=== PATIENT | female | born 1970 | race Caucasian/White ===

== ENCOUNTER → 2020-11-09 | Outpatient (CLI) | payer BC ==
--- NOTE | 2020-11-09 20:37 | US ---
EXAMINATION TYPE: US thyroid st tissue head/neck DATE OF EXAM: 11/09/2020 COMPARISON: NONE CLINICAL HISTORY: R22.0 Swelling. GLAND SIZE: Right Lobe: 4.7 x 1.4 x 1.6 cm Overall Parenchyma: homogenous Left Lobe: 4.6 x 1.4 x 1.4 cm Overall Parenchyma: homogeneous Isthmus Thickness: 0.4 cm NODULES RIGHT: # of nodules measured on right: 2 1. 0.7 X 0.5 x 0.7 cm, mid mid, solid or almost completely solid, hypoechoic nodule, which is wider than tall, with smooth margins, with echogenic foci. Prior size: no prior 2. 1.0 X 0.6 x 0.9 cm, lower mid, solid or almost completely solid, hypoechoic nodule, which is wid er than tall, with smooth margins, with echogenic foci. Prior size: no prior LEFT: # of nodules measured on left: 1 1. 0.5 X 0.4 x 0.4 cm, mid lateral, solid or almost completely solid, hypoechoic nodule, which is w ider than tall, with smooth margins, with echogenic foci. Prior size: no prior ISTHMUS: # of nodules measured in the isthmus: 0 Bilateral neck scanned, no evidence of lymphadenopathy. Nodules as described. IMPRESSION: 1. Multinodular thyroid largest measuring 1 cm in the right lobe. 2017 ACR TI-RADS LEVEL: TI-RADS 5 - Highly Suspicious: Follow if > 0.5 cm, FNA if > 1.0 cm *Highest TI-RADS level nodule reported
--- NOTE | 2020-11-09 20:40 | XR ---
EXAMINATION TYPE: XR chest 2V DATE OF EXAM: 11/09/2020 COMPARISON: NONE TECHNIQUE: PA and lateral views submitted. HISTORY: Pain, numbness FINDINGS: The lungs are clear and there is no pneumothorax, pleural effusion, or focal pneumonia. Hypertrophi c and degenerative changes spine. Heart size mildly prominent. Coarsened interstitium. IMPRESSION: 1. Correlate for mild cardiomegaly. Mild chronic central interstitial congestion or bronchitis or int erstitial pneumonitis in the differential diagnosis..
== END | disposition home or self-care (01) ==
LOC: RADUSWWP 16:45
PROVIDERS: ATTEND Family Medicine
DX: E04.2 Nontoxic multinodular goiter (principal); R07.9 Chest pain, unspecified
CPT/HCPCS: 71046; 76536

== ENCOUNTER → 2020-12-11 | Outpatient (CLI) | payer BC | END | disposition home or self-care (01) | DX: R53.83 Other fatigue (principal) | CPT/HCPCS: 36415; 82024; 82533; 82607; 84146; 84439; 84443; 84481; 86376 ==

== ENCOUNTER → 2021-02-04 | Outpatient (CLI) | payer BC ==
--- NOTE | 2021-02-04 09:40 | US ---
EXAMINATION TYPE: US abdomen complete DATE OF EXAM: 02/04/2021 COMPARISON: US 06/13/14 CLINICAL HISTORY: R11.0 Nausea. EXAM MEASUREMENTS: Liver Length: 17.5 cm Gallbladder Wall: 0.2 cm CBD: 0.3 cm Spleen: 7.4 cm Right Kidney: 10.7 x 4.9 x 4.6 cm Left Kidney: 10.3 x 5.4 x 5.3 cm Pancreas: Partially Obscured by bowel gas Liver: Increased attenuation Gallbladder: No stones seen. GB with fold at fundus Evidence for sonographic Lopez's sign: No CBD: wnl Spleen: wnl Right Kidney: No hydronephrosis or masses seen Left Kidney: No hydronephrosis or masses seen Upper IVC: wnl Abd Aorta: wnl The intrahepatic portion of the IVC and proximal abdominal aorta are within normal limits. There is no evidence of cholelithiasis. Common bile duct is unremarkable. The visualized portions of the waddell creas are homogenous. The spleen is unremarkable. Kidneys are symmetric and free of hydronephrosis. No renal lesions are seen. IMPRESSION: Hepatic steatosis
== END | disposition home or self-care (01) ==
LOC: RADUSWWP 07:39
PROVIDERS: ATTEND Family Medicine
DX: K76.0 Fatty (change of) liver, not elsewhere classified (principal)
CPT/HCPCS: 76700

== ENCOUNTER → 2021-03-06 | Outpatient (CLI) | payer BC ==
--- NOTE | 2021-03-06 16:17 | CT ---
EXAMINATION TYPE: CT soft tissue neck w con DATE OF EXAM: 03/06/2021 COMPARISON: None HISTORY: Generalized neck swelling, no palpable lump. CT DLP: 651.2 mGycm CONTRAST: Patient injected with 100 mL of Isovue M300. TECHNIQUE: Axial images at 3 mm thick sections. Reconstructed images in the coronal plane and sagitt al plane are reviewed. FINDINGS: Limited CT sections are obtained the lung apices. The lung apices appear clear. Portion of the thyroid visualized is normal. CT neck: The torus tubarius and fossa of Rosenmuller are normal. Snipper spaces are normal. Para nasal sinuses and mastoid air cells are clear. Parotid glands appear normal and symmetrical. Submandibular glands, are normal. Parapharyngeal spac es are normal. No suspicious adenopathy is evident. The hypopharynx appears within normal limits. Vocal cord level appear symmetrical. Osseous structures are normal. IMPRESSIONS: 1. Normal soft tissue neck. No suspicious abnormality to account for generalized neck swelling.
--- NOTE | 2021-03-07 08:37 | XR ---
EXAMINATION TYPE: XR chest 2V DATE OF EXAM: 03/06/2021 COMPARISON: Chest x-ray 11/09/2020 HISTORY: Shortness of breath TECHNIQUE: Frontal and lateral views of the chest are obtained. FINDINGS: There is no focal air space opacity, pleural effusion, or pneumothorax seen. The cardiac silhouette size is within normal limits. There is eventration of the right hemidiaphragm, interstiti um is stable. The osseous structures are stable. IMPRESSION: No acute cardiopulmonary process.
== END | disposition home or self-care (01) ==
LOC: RADCTMAIN 15:32
PROVIDERS: ATTEND Family Medicine
DX: R22.1 Localized swelling, mass and lump, neck (principal); R06.02 Shortness of breath
CPT/HCPCS: 71046; 70491; Q9967

== ENCOUNTER → 2021-05-13 | Outpatient (CLI) | payer BC ==
[~2021-05-13] MED LIST: SODIUM CHLORIDE 0.9% 50 ML IVPB ONE; SODIUM CHLORIDE 0.9% 500 ML 500 ML in EMPTY BAG 1 BAG IV PRN; SOTROVIMAB (EUA) 500 MG in SODIUM CHLORIDE 0.9% 100 ML IVPB ONE
[2021-05-13 13:35] VITALS: TEMP 96.6
[2021-05-13 14:43] VITALS: BP 98/57; PULSE 73; RESP 18
== END ==
LOC: PROCWHC3 13:10
PROVIDERS: ATTEND Nurse Practitioner Adult Health
DX: U07.1 COVID-19 (principal)
CPT/HCPCS: 96360

== ENCOUNTER → 2021-09-24 | Outpatient (CLI) | payer BC ==
[2021-09-25 00:08] LABS: Thyroid Peroxidase Antibodies <9.0 U/mL (0.0-33.0)
[2021-09-25 00:48] LABS: Prolactin 5.8 ng/mL (2.800-29.200); T4, Free (Free Thyroxine) 1.21 ng/dL (0.800-1.800)
--- NOTE | 2021-09-25 08:17 | US ---
EXAMINATION TYPE: US thyroid st tissue head/neck DATE OF EXAM: 09/24/2021 COMPARISON: US CLINICAL HISTORY: E04.2 NONTOXIC MULTINODULAR GOITER. Goiter. GLAND SIZE: Right Lobe: 4.9 x 1.7 x 1.5 cm Overall Parenchyma: homogenous Left Lobe: 4.7 x 1.7 x 1.1 cm Overall Parenchyma: homogeneous Isthmus Thickness: 0.29 cm NODULES RIGHT: # of nodules measured on right: 2. Additional <5 mm nodule noted superiorly. 1. 0.7 X 0.7 x 0.5 cm, mid mid, solid or almost completely solid, hypoechoic nodule, which is wider than tall, with smooth margins, without echogenic foci. Prior size: 0.7 x 0.5 x 0.7 cm 2. 1.0 X 1.1 x 0.6 cm, lower mid, solid or almost completely solid, hypoechoic nodule, which is wid er than tall, with smooth margins, with echogenic foci. Prior size: 1.0 x 0.6 x 0.9 cm LEFT: # of nodules measured on left: 1 *Additional <5 mm nodule noted medially. 1. 0.7 X 0.5 x 0.4 cm, mid lateral, solid or almost completely solid, hypoechoic nodule, which is w ider than tall, with smooth margins, with echogenic foci. Prior size: 0.5 x 0.4 x 0.4 cm ISTHMUS: # of nodules measured in the isthmus: 0 Bilateral neck scanned, no evidence of lymphadenopathy. IMPRESSION: Stable nonspecific nodularity.
== END | disposition home or self-care (01) ==
LOC: RADUSWWP 15:51
PROVIDERS: ATTEND Internal Medicine Endocrinology, Diabetes & Metabolism
DX: E04.2 Nontoxic multinodular goiter (principal)
CPT/HCPCS: 76536; 82024; 82533; 82607; 84146; 84439; 84443; 84481; 86376

== ENCOUNTER 2021-12-18 08:23 | Day surgery (SDC) | payer BC ==
[2021-12-16 10:04] VITALS: BMI 44.9
--- NOTE | 2021-12-18 07:41 | P.GSHP ---
History of Present Illness H&P Date: 12/18/21 CHIEF COMPLAINT: GERD and colon screen HISTORY OF PRESENT ILLNESS: The patient is a 51-year-old female who presents with gastroesophageal reflux disease and need for colon screen. Upper and lower endoscopy were offered for further evaluation and management. PAST MEDICAL HISTORY: Please see list. PAST SURGICAL HISTORY: Please see list. MEDICATIONS: Please see list. ALLERGIES: Please see list. SOCIAL HISTORY: No illicit drug use FAMILY HISTORY: No reports of Crohn disease or ulcerative colitis. REVIEW OF ORGAN SYSTEMS: CONSTITUTIONAL: No reports of fevers or chills. GI: Denies any blood in stools or constipation. PHYSICAL EXAM: VITAL SIGNS: Stable GENERAL: Well-developed pleasant in no acute distress. HEENT: No scleral icterus. Extraocular movements grossly intact. Moist buccal mucosa. NECK: Supple without lymphadenopathy. CHEST: Unlabored respirations. Equal bilateral excursions. CARDIOVASCULAR: Regular rate and rhythm. Distal 2+ pulses. ABDOMEN: Soft, nondistended. MUSCULOSKELETAL: No clubbing, cyanosis, or edema. ASSESSMENT: 1. Gastroesophageal reflux disease 2. Colon screen. PLAN: 1. Recommend proceeding with an upper and lower endoscopy Past Medical History Past Medical History: No Reported History Additional Past Medical History / Comment(s): Varicose veins. History of Any Multi-Drug Resistant Organisms: None Reported Additional Past Surgical History / Comment(s): D&C. Past Anesthesia/Blood Transfusion Reactions: No Reported Reaction Past Psychological History: No Psychological Hx Reported Smoking Status: Current every day smoker Past Alcohol Use History: Occasional Additional Past Alcohol Use History / Comment(s): Smokes 1/2 ppd for 20+ yrs. Past Drug Use History: None Reported - Past Family History Mother Family Medical History: No Reported History Medications and Allergies Home Medications Medication Instructions Recorded Confirmed Type Fexofenadine/Pseudoephedrine 1 tab PO DAILY 12/16/21 12/16/21 History [Aditi-D 24 Hour Tablet] Ibuprofen [Motrin Ib] 600 mg PO Q8H PRN 12/16/21 12/16/21 History Allergies Allergy/AdvReac Type Severity Reaction Status Date / Time No Known Allergies Allergy Verified 12/16/21 09:47
[~2021-12-18 08:23] MED LIST changes: +LACTATED RINGERS 1,000 ML IV SCH; -SODIUM CHLORIDE 0.9% 50 ML IVPB ONE; -SODIUM CHLORIDE 0.9% 500 ML 500 ML in EMPTY BAG 1 BAG IV PRN; -SOTROVIMAB (EUA) 500 MG in SODIUM CHLORIDE 0.9% 100 ML IVPB ONE
[2021-12-18 09:09] VITALS: RESP 16; TEMP 98
[2021-12-18] MEDS ORDERED: LIDOCAINE 2% INJ 20 MG/ML (2 ML VIAL) ONE (09:25)
[2021-12-18] MEDS ORDERED: PROPOFOL 10 MG/ML 20 ML VIAL IV ONE (09:25)
[2021-12-18] MEDS ORDERED: GLYCOPYRROLATE 0.2 MG/ML 2 ML VIAL ONE (09:25)
--- NOTE | 2021-12-18 09:38 | P.PCN ---
Date of Procedure: 12/18/21 Description of Procedure: PREOPERATIVE DIAGNOSIS: Gastroesophageal reflux disease. Morbid obesity. POSTOPERATIVE DIAGNOSIS: Gastroesophageal reflux disease. Morbid obesity. Duodenitis OPERATION: Esophagogastroduodenoscopy with biopsies along antrum and duodenum SURGEON: Eneida Ulloa MD ANESTHESIA: MAC. INDICATIONS: The patient is a [id number] female who presents with reflux disease. Benefits and risks of the procedure were described. Informed consent was obtained. DESCRIPTION: The patient was brought into the endoscopy suite and laid in the left lateral decubitus position. An Olympus gastroscope was passed along the posterior oropharynx down to the distal esophagus where the squamocolumnar junction was encountered at 36 cm from the incisors. The stomach was entered and no bile reflux was found. Additional findings are listed below. Biopsies with cold forceps were obtained of the antrum. The first through third portion of the duodenum was examined. Retroflexion of the scope confirmed Hill grade 2 lower esophageal valve. The squamocolumnar junction demonstrated LA grade B erosive esophagitis. The stomach was desufflated. The patient tolerated the procedure well. FINDINGS: Squamocolumnar junction 36 cm from the incisors. Diaphragmatic hiatus at 36 cm. Hill grade 2 lower esophageal valve. LA grade B erosive esophagitis. Biopsies obtained of duodenal Chronic gastritis RECOMMENDATIONS: Upper endoscopy as needed.
--- NOTE | 2021-12-18 09:58 | P.PCN ---
Date of Procedure: 12/18/21 Description of Procedure: PREOPERATIVE DIAGNOSIS: Abnormal cologaurd, fecal stool tests POSTOPERATIVE DIAGNOSIS: Tubular adenoma, rectum Tubular adenoma, sigmoid colon OPERATION: Colonoscopy to the ileocecal valve and appendiceal orifice, cecum Colonoscopy with cold forceps biopsy SURGEON: Eneida Ulloa MD. ANESTHESIA: MAC. INDICATIONS: The patient is an 51-year-old female who presents with abnormal stool test, Cologaurd. Benefits and risks were described and informed consent was obtained. DESCRIPTION OF PROCEDURE: The patient had undergone Sutab prep. The patient had been brought into the operating room and laid in the left lateral decubitus position. After adequate intravenous sedation, the rectum was examined with 2% lidocaine jelly. The prostate was unremarkable. No external hemorrhoids were encountered. The rectal tone was within normal limits. No lesions were palpated in the rectal vault. An Olympus colonoscope was advanced until the cecum, ileocecal valve and appendiceal orifice were clearly viewed. The prep was fair. No sigmoid diverticulosis was encountered. Colonic polyps were found and removed. No evidence of focal colitis was found. Retroflexion of the scope demonstrated grade 1 internal hemorrhoids without active bleeding or inflammation. The colon was desufflated. The patient had tolerated the procedure well. Withdrawal time was over 6 minutes. FINDINGS: Aronchick preparation quality scale 3 (1-5) Internal hemorrhoids, grade 1 No external hemorrhoids No arteriovenous malformations. No sigmoid diverticulosis Removal of 2 polyps: - Cold forceps biopsy at 10 cm from the anal verge, 5 mm polyp, rectum - Cold forceps biopsy at 15 cm from the anal verge, 3 mm polyp, sigmoid colon No focal colitis. RECOMMENDATIONS: We be colonoscopy 3 years, 2024 Plan - Discharge Summary Discharge Rx Participant: No New Discharge Prescriptions: New Omeprazole [PriLOSEC] 40 mg PO DAILY #14 cap Continue Ibuprofen [Motrin Ib] 600 mg PO Q8H PRN PRN Reason: Pain Fexofenadine/Pseudoephedrine [Aditi-D 24 Hour Tablet] 1 tab PO DAILY Discharge Medication List Fexofenadine/Pseudoephedrine [Adtii-D 24 Hour Tablet] 1 tab PO DAILY 12/16/21 [History] Ibuprofen [Motrin Ib] 600 mg PO Q8H PRN 12/16/21 [History] Omeprazole [PriLOSEC] 40 mg PO DAILY #14 cap 12/18/21 [Rx] Follow up Appointment(s)/Referral(s): Eneida Ulloa MD [STAFF PHYSICIAN] - 12/31/21 Patient Instructions/Handouts: *Surgery [facility] - (Anesthesia) Endoscopy Discharge Instructions, Duodenitis (DC), Colonoscopy (DC), Upper Endoscopy (DC), Colorectal Polyps (GEN) Activity/Diet/Wound Care/Special Instructions: Repeat colonoscopy in 3 years, 2024 Discharge Disposition: HOME SELF-CARE
[2021-12-18 10:14] VITALS: BP 132/84; PULSE 63
== END 2021-12-18 10:31 | disposition home or self-care (01) ==
LOC: ORWHC2ENDO 08:23
PROVIDERS: ATTEND Surgery Plastic and Reconstructive Surgery
DX: Z12.11 Encounter for screening for malignant neoplasm of colon (principal); K62.1 Rectal polyp; K64.0 First degree hemorrhoids; K29.50 Unspecified chronic gastritis without bleeding; K21.00 Gastro-esophageal reflux disease with esophagitis, without bleeding; K44.9 Diaphragmatic hernia without obstruction or gangrene; E66.01 Morbid (severe) obesity due to excess calories; Z68.41 Body mass index [BMI] 40.0-44.9, adult; F17.200 Nicotine dependence, unspecified, uncomplicated; Z79.899 Other long term (current) drug therapy
CPT/HCPCS: 88305; 45380; 43239; J2704; J2001

== ENCOUNTER → 2022-10-16 | Outpatient (CLI) | payer BC ==
--- NOTE | 2022-10-17 19:52 | MM ---
Reason for Exam: Screening (asymptomatic). Last screening mammogram was performed 12 month(s) ago. Patient History: Menarche at age 12. First Full-Term at age 31. Late child-bearing (after 30). Postmenopausal. Maternal aunt had breast cancer. Maternal aunt had breast cancer. Risk Values: Altagracia 5 year model risk: 1.5%. NCI Lifetime model risk: 11.8%. Prior Study Comparison: 02/02/2019 Screening Mammogram, [facility]. 04/23/2020 Screening Mammogram, [facility]. 10/15/2021 Bilateral Screening Mammogram, [facility]. Tissue Density: There are scattered fibroglandular densities. Findings: Analyzed By CAD. There is no suspicious group of microcalcifications or new suspicious mass in either breast. Overall Assessment: Negative, BI-RAD 1 Management: Screening Mammogram of both breasts in 1 year. . Patient should continue monthly self-breast exams. A clinical breast exam by your physician is recommended on an annual basis. This exam should not preclude additional follow-up of suspicious palpable abnormalities. Note on Altagracia scores and lifetime risk: 1. A Altagracia score greater than 3% is considered moderate risk. If this is the case, consider specialist referral to assess eligibility for a risk reducing agent. 2. If overall lifetime risk for the development of breast cancer is 20% or higher, the patient may qualify for future screening with alternating mammogram and breast MRI. Electronically signed and approved by: Laith Whitman M.D. Radiologist
== END | disposition home or self-care (01) ==
LOC: RADMAMWWP 16:16
PROVIDERS: ATTEND Obstetrics & Gynecology Obstetrics
DX: Z12.31 Encounter for screening mammogram for malignant neoplasm of breast (principal); Z80.3 Family history of malignant neoplasm of breast; Z78.0 Asymptomatic menopausal state
CPT/HCPCS: 77063; 77067

== ENCOUNTER → 2023-09-18 | Outpatient (CLI) | payer BC | END | disposition home or self-care (01) | LOC: LABWHC1 15:50 | PROVIDERS: ATTEND Internal Medicine Endocrinology, Diabetes & Metabolism | DX: Z53.9 Procedure and treatment not carried out, unspecified reason (principal) ==

== ENCOUNTER → 2023-09-18 | Outpatient (CLI) | payer BC ==
--- NOTE | 2023-09-18 16:09 | US ---
EXAMINATION TYPE: US thyroid st tissue head/neck DATE OF EXAM: 09/18/2023 COMPARISON: NONE CLINICAL INDICATION: Female, 53 years old with history of E04.2 NONTOXIC MULTINODULAR GOITER; GLAND SIZE: Right Lobe: 4.6 x 1.6 x 1.4 cm Overall Parenchyma: homogeneous Left Lobe: 4.8 x 1.1 x 1.5 cm Overall Parenchyma: homogeneous Isthmus Thickness: 0.4 cm NODULES RIGHT: # of nodules measured on right: 2 1. 0.7 X 0.6 x 0.6 cm, mid lateral, solid or almost completely solid, hypoechoic nodule, which is C ircular, with smooth margins, with echogenic foci. Prior size: 0.7 x 0.5 x 0.6 cm 2. 0.9 X 0.6 x 0.9 cm, lower mid, solid or almost completely solid, hypoechoic nodule, which is wid er than tall, with smooth margins, without echogenic foci. Prior size: 1.0 x 0.5 x 0.9 cm LEFT: # of nodules measured on left: 2 1. 0.5 X 0.3 x 0.4 cm, mid medial, solid or almost completely solid, hypoechoic nodule, which is wi moses than tall, with smooth margins, with echogenic foci. Prior size: Not seen on prior 2. 0.7 X 0.4 x 0.5 cm, lower lateral, solid or almost completely solid, hypoechoic nodule, which i s wider than tall, with ill-defined margins, with echogenic foci. Prior size: 0.6 x 0.3 x 0.5 cm ISTHMUS: # of nodules measured in the isthmus: 0 Bilateral neck scanned, no evidence of lymphadenopathy. IMPRESSION: Subcentimeter thyroid nodules without significant interval change. 2017 ACR TI-RADS LEVEL: *Highest TI-RADS level nodule reported
== END | disposition home or self-care (01) ==
LOC: RADUSWWP 15:26
PROVIDERS: ATTEND Internal Medicine Endocrinology, Diabetes & Metabolism
DX: E04.2 Nontoxic multinodular goiter (principal)
CPT/HCPCS: 76536

== ENCOUNTER → 2023-09-18 | Outpatient (CLI) | payer BC ==
--- NOTE | 2023-09-18 16:09 | US ---
EXAMINATION TYPE: US abdomen limited DATE OF EXAM: 09/18/2023 COMPARISON: NONE CLINICAL INDICATION: Female, 53 years old with history of R19.09 OTHER INTRA-ABDOMINAL AND PELVIC SWE LLING,; Intermittent lump superior to umbilicus x 1 year TECHNIQUE: FINDINGS: ? Hernia seen at patients AOC = 7.2 x 2.5 x 6.0 cm IMPRESSION: Hernia as noted above.
[2023-09-19 05:15] LABS: T4, Free (Free Thyroxine) 1.16 ng/dL (0.80-1.80)
== END | disposition home or self-care (01) ==
LOC: RADUSWWP 15:28
PROVIDERS: ATTEND Family Medicine
DX: K46.9 Unspecified abdominal hernia without obstruction or gangrene (principal); R19.09 Other intra-abdominal and pelvic swelling, mass and lump
CPT/HCPCS: 76705; 84439; 84443

== ENCOUNTER → 2023-10-19 | Outpatient (CLI) | payer BC ==
--- NOTE | 2023-10-20 20:10 | MM ---
Reason for Exam: Screening (asymptomatic). Last screening mammogram was performed 12 month(s) ago. Patient History: Menarche at age 12. First Full-Term at age 31. Late child-bearing (after 30). Postmenopausal. Maternal aunt had breast cancer. Maternal aunt had breast cancer. Risk Values: Altagracia 5 year model risk: 1.5%. NCI Lifetime model risk: 11.6%. Prior Study Comparison: 04/23/2020 Screening Mammogram, [facility]. 10/15/2021 Bilateral Screening Mammogram, [facility]. 10/16/2022 Bilateral MG 3D screening mammo w/cad, [facility]. Tissue Density: There are scattered areas of fibroglandular density. Findings: Analyzed By CAD. Increasing nodular asymmetric density superior central aspect of the right breast on the MLO view anterior to middle depth. This may represent superimposition shadow but further evaluation is recommended. Otherwise, no significant change. Overall Assessment: Incomplete: need additional imaging evaluation, BI-RAD 0 Management: Special View Mammogram of the right breast. . [facility] will attempt to contact patient to return for supplemental views and ultrasound if indicated. Electronically signed and approved by: Laith Whitman M.D. Radiologist
== END | disposition home or self-care (01) ==
LOC: RADMAMWWP 15:13
PROVIDERS: ATTEND Obstetrics & Gynecology Obstetrics
DX: Z12.31 Encounter for screening mammogram for malignant neoplasm of breast (principal); Z78.0 Asymptomatic menopausal state; Z80.3 Family history of malignant neoplasm of breast
CPT/HCPCS: 77063; 77067

== ENCOUNTER → 2023-10-23 | Outpatient (CLI) | payer BC ==
--- NOTE | 2023-10-23 20:37 | MM ---
Reason for Exam: Additional evaluation requested from abnormal screening. Last screening mammogram was performed less than 1 month ago. Patient History: Menarche at age 12. First Full-Term at age 31. Late child-bearing (after 30). Postmenopausal. Maternal aunt had breast cancer. Maternal aunt had breast cancer. Risk Values: Altagracia 5 year model risk: 1.5%. NCI Lifetime model risk: 11.6%. Tissue Density: Right: There are scattered areas of fibroglandular density. Findings: Analyzed By CAD. The questioned asymmetric density anterior to middle depth centrally in the breast does not persist on additional views. The appearance becomes similar to prior exams. Findings compatible with benign superposition shadow. Overall Assessment: Benign, BI-RAD 2 Management: Screening Mammogram of both breasts in 1 year. . Results were given to the patient verbally at the time of exam. Patient should continue monthly self-breast exams. A clinical breast exam by your physician is recommended on an annual basis. This exam should not preclude additional follow-up of suspicious palpable abnormalities. Note on Altagracia scores and lifetime risk: 1. A Altagracia score greater than 3% is considered moderate risk. If this is the case, consider specialist referral to assess eligibility for a risk reducing agent. 2. If overall lifetime risk for the development of breast cancer is 20% or higher, the patient may qualify for future screening with alternating mammogram and breast MRI. Electronically signed and approved by: Laith Whitman M.D. Radiologist
== END | disposition home or self-care (01) ==
LOC: RADMAMWWP 14:08
PROVIDERS: ATTEND Obstetrics & Gynecology Obstetrics
DX: R92.8 Other abnormal and inconclusive findings on diagnostic imaging of breast (principal); R92.321 Mammographic fibroglandular density, right breast; Z78.0 Asymptomatic menopausal state; Z80.3 Family history of malignant neoplasm of breast
CPT/HCPCS: 77061; 77065

== ENCOUNTER → 2024-01-07 | Outpatient (CLI) | payer BC ==
--- NOTE | 2024-01-09 10:55 | CT ---
EXAMINATION TYPE: CT abdomen pelvis w con CT DLP: 1827.3 mGycm, Automated exposure control for dose reduction was used. DATE OF EXAM: 01/07/2024 5:57 PM COMPARISON: CT abdomen pelvis most recent from CLINICAL INDICATION:Female, 53 years old with history of K56.609 INTESTINAL OBSTRUCTION, UNSPECIFIED TO PARTIAL VERSUS C; ABD PAIN AND SWELLING TECHNIQUE: Axial CT abdomen pelvis w con;Sagittal and coronal reformats were created on a separate w orkstation. Contrast used:100 mL of Isovue 300 with IV Contrast, (none if empty) Oral contrast used: with Oral Contrast (none if empty) FINDINGS: LOWER CHEST: Unremarkable ABDOMEN LIVER: Unremarkable GALLBLADDER AND BILE DUCTS: Unremarkable. PANCREAS: Unremarkable. SPLEEN: Unremarkable. ADRENAL GLANDS: Unremarkable. KIDNEYS AND URETERS: No evidence of hydronephrosis or renal calculus. The ureters are unremarkable. PELVIS BLADDER: Unremarkable REPRODUCTIVE: Unremarkable. ABDOMEN & PELVIS STOMACH AND BOWEL: Oral contrast is seen throughout the small bowel and throughout the ascending colo n and partially through the transverse colon. No evidence of bowel obstruction. PERITONEUM/RETROPERITONEUM: No evidence of pneumoperitoneum or free fluid. VASCULATURE: No evidence of aortic aneurysm. MUSCULOSKELETAL: No acute osseous abnormalities LYMPH NODES: No gross evidence for lymphadenopathy. SOFT TISSUE/ABDOMINAL WALL: . Mid abdomen, fat-containing, ventral hernia has a 4 cm neck. IMPRESSION: Transit of oral contrast is seen through the transverse colon. No evidence of bowel obstruction. No acute process detected.. Mid abdomen, fat-containing, ventral hernia has a 4 cm neck. This is essentially midline and and 3 c m above the umbilicus.
== END | disposition home or self-care (01) ==
LOC: RADCTMAIN 15:59
PROVIDERS: ATTEND Surgery Plastic and Reconstructive Surgery
DX: K56.609 Unspecified intestinal obstruction, unspecified as to partial versus complete obstruction (principal); K43.9 Ventral hernia without obstruction or gangrene
CPT/HCPCS: 74177; Q9967

== ENCOUNTER → 2024-05-30 | Outpatient (CLI) | payer BC ==
[2024-05-30 11:02] LABS: HCT 41.9 % (37.2-46.3); HGB 13.6 g/dL (12.0-15.0); MCH 29.6 pg (27.0-32.0); MCHC 32.5 g/dL (32.0-37.0); MCV 91.1 FL (80.0-97.0); Mean Platelet Volume 10.2 FL (9.5-12.2); NRBC Per 100 WBC 0 X 10*3/uL (0.00-0.01); Platelet Count 290 X 10*3/uL (140-440); RDW 12.6 % (11.5-14.5); WBC 5.94 X 10*3/uL (4.50-10.00)
[2024-05-30 13:04] LABS: Chol/HDL Ratio 3.91 Ratio; LDL Cholesterol,Calculated 146.9 mg/dL (0.0-131.0); VLDL Calculation 18.98 mg/dL (5.00-40.00)
[2024-05-30 13:05] LABS: ALT 28 U/L (8-44); AST 21 U/L (13-35); Albumin 3.8 g/dL (3.8-4.9); Albumin/Globulin Ratio 1.27 Ratio (1.60-3.17); Alkaline Phosphatase 106 U/L (41-126); BUN/Creat Ratio 27.29 Ratio (12.00-20.00); Blood Urea Nitrogen 19.1 mg/dL (9.0-27.0); Calcium 9.3 mg/dL (8.7-10.3); Carbon Dioxide 25.1 mmol/L (21.6-31.8); Chloride 107 mmol/L (96-109); Glucose 95 mg/dL (70-110); Potassium 4.3 mmol/L (3.5-5.5); Sodium 143 mmol/L (135-145); Total Bilirubin 0.3 mg/dL (0.3-1.2); Total Protein 6.8 g/dL (6.2-8.2)
[2024-05-30 13:49] LABS: NT-Pro-B-Type Natriuretic Pept 104 pg/mL (0-125)
== END ==
LOC: LABWHC1 07:49
PROVIDERS: ATTEND Student in an Organized Health Care Education/Training Program
DX: Z13.6 Encounter for screening for cardiovascular disorders (principal); D72.9 Disorder of white blood cells, unspecified; R79.89 Other specified abnormal findings of blood chemistry; E11.9 Type 2 diabetes mellitus without complications; I50.9 Heart failure, unspecified; E78.5 Hyperlipidemia, unspecified; E03.9 Hypothyroidism, unspecified
CPT/HCPCS: 36415; 80053; 80061; 83036; 83880; 84443; 85027

== ENCOUNTER → 2024-11-16 | Outpatient (CLI) | payer BC ==
--- NOTE | 2024-11-17 07:57 | MM ---
Reason for Exam: Screening (asymptomatic). Last mammogram was performed 1 year(s) and 1 month(s) ago. Patient History: Menarche at age 12. First Full-Term at age 31. Late child-bearing (after 30). Postmenopausal. Maternal aunt had breast cancer. Maternal aunt had breast cancer. Risk Values: Altagracia 5 year model risk: 1.6%. NCI Lifetime model risk: 11.4%. Prior Study Comparison: 10/16/2022 Bilateral MG 3D screening mammo w/cad, [facility]. 10/19/2023 Bilateral MG 3D screening mammo w/cad, [facility]. 10/23/2023 Right MG 3D work up w/cad RT, [facility]. Tissue Density: There are scattered areas of fibroglandular density. Findings: Analyzed By CAD. There is no suspicious group of microcalcifications or new suspicious mass in either breast. Stable chronic nodularity left breast. Overall Assessment: Benign, BI-RAD 2 Management: Screening Mammogram of both breasts in 1 year. . Patient should continue monthly self-breast exams. A clinical breast exam by your physician is recommended on an annual basis. This exam should not preclude additional follow-up of suspicious palpable abnormalities. Note on Altagracia scores and lifetime risk: 1. A Altagracia score greater than 3% is considered moderate risk. If this is the case, consider specialist referral to assess eligibility for a risk reducing agent. 2. If overall lifetime risk for the development of breast cancer is 20% or higher, the patient may qualify for future screening with alternating mammogram and breast MRI. [facility], , 11/17/2024 7:54 AM. Electronically signed and approved by: Heber Mccoy M.D. Radiologis
== END | disposition home or self-care (01) ==
LOC: RADMAMWWP 16:13
PROVIDERS: ATTEND Obstetrics & Gynecology Obstetrics
DX: Z12.31 Encounter for screening mammogram for malignant neoplasm of breast (principal); R92.323 Mammographic fibroglandular density, bilateral breasts; Z78.0 Asymptomatic menopausal state; Z80.3 Family history of malignant neoplasm of breast
CPT/HCPCS: 77063; 77067

== ENCOUNTER 2024-12-14 07:59 | Day surgery (SDC) | payer BC ==
[2024-12-14] MEDS: IV FLUID CONTINUATION 1,000 ML IV ONE (08:41)
[2024-12-14 08:44] VITALS: TEMP 97
[2024-12-14] MEDS: LACTATED RINGERS 1,000 ML IV SCH (08:58)
--- NOTE | 2024-12-14 09:01 | P.GSHP ---
History of Present Illness H&P Date: 12/14/24 CHIEF COMPLAINT: Dysphagia and colon screen HISTORY OF PRESENT ILLNESS: The patient is a 54-year-old female who presents with dysphagia, gastroesophageal reflux disease and need for colon screen. Upper and lower endoscopy were offered for further evaluation and management. PAST MEDICAL HISTORY: Please see list. PAST SURGICAL HISTORY: Please see list. MEDICATIONS: Please see list. ALLERGIES: Please see list. SOCIAL HISTORY: No illicit drug use FAMILY HISTORY: No reports of Crohn disease or ulcerative colitis. REVIEW OF ORGAN SYSTEMS: CONSTITUTIONAL: No reports of fevers or chills. GI: Denies any blood in stools or constipation. PHYSICAL EXAM: VITAL SIGNS: Stable GENERAL: Well-developed pleasant in no acute distress. HEENT: No scleral icterus. Extraocular movements grossly intact. Moist buccal mucosa. NECK: Supple without lymphadenopathy. CHEST: Unlabored respirations. Equal bilateral excursions. CARDIOVASCULAR: Regular rate and rhythm. Distal 2+ pulses. ABDOMEN: Soft, nondistended. MUSCULOSKELETAL: No clubbing, cyanosis, or edema. ASSESSMENT: 1. Dysphagia and gastroesophageal reflux disease 2. Colon screen. PLAN: 1. Recommend proceeding with an upper and lower endoscopy Past Medical History Past Medical History: No Reported History Additional Past Medical History / Comment(s): Varicose veins. History of Any Multi-Drug Resistant Organisms: None Reported Past Surgical History: Tonsillectomy Additional Past Surgical History / Comment(s): D&C. colonoscopy Past Anesthesia/Blood Transfusion Reactions: No Reported Reaction Smoking Status: Current every day smoker - Past Family History Mother Family Medical History: No Reported History Medications and Allergies Home Medications Medication Instructions Recorded Confirmed Type Fexofenadine/Pseudoephedrine 1 tab PO DAILY 12/16/21 12/12/24 History [Aditi-D 24 Hour Tablet] Ibuprofen [Motrin Ib] 600 mg PO Q8H PRN 12/16/21 12/12/24 History B12 Complex 1 tab PO DAILY 12/12/24 12/12/24 History Contrave (Unk) 1 tab PO DAILY 12/12/24 12/12/24 History Multivitamins, Thera [Multivitamin 1 tab PO DAILY 12/12/24 12/12/24 History (formulary)] Mv-Min/Vit C/Glut/Lysine/Hb124 1 tablet PO DAILY 12/12/24 12/12/24 History [Airborne Effervescent Tablet] Vit D (Unk) 1 tab PO DAILY 12/12/24 12/12/24 History Allergies Allergy/AdvReac Type Severity Reaction Status Date / Time No Known Allergies Allergy Verified 12/12/24 14:55 Surgical - Exam Vital Signs Temp Pulse Resp BP Pulse Ox 97 F L 91 18 123/75 97 12/14/24 08:42 12/14/24 08:42 12/14/24 08:42 12/14/24 08:42 12/14/24 08:42
[2024-12-14] MEDS ORDERED: LIDOCAINE 1% INJ 10MG/ML (20 ML MDV) ONE (09:02)
[2024-12-14] MEDS ORDERED: PROPOFOL 10 MG/ML 20 ML VIAL IV ONE (09:02)
[2024-12-14] MEDS ORDERED: GLYCOPYRROLATE 0.2 MG/ML 2 ML VIAL ONE (09:02)
--- NOTE | 2024-12-14 09:26 | P.PCN ---
Date of Procedure: 12/14/24 Description of Procedure: PREOPERATIVE DIAGNOSIS: Morbid obesity. Acute gastric ulcers Dysphagia POSTOPERATIVE DIAGNOSIS: Gastroesophageal reflux disease. Morbid obesity. Gastritis. Diaphragmatic hiatal hernia Obstructive sleep apnea OPERATION: Esophagogastroduodenoscopy with cold forceps biopsies along esophagus, antrum and duodenum SURGEON: Eneida Ulloa MD ANESTHESIA: MAC. INDICATIONS: The patient is a 54-year-old female who presents with ulcers, dysphagia and reflux disease. Benefits and risks of the procedure were described. Informed consent was obtained. DESCRIPTION: The patient was brought into the endoscopy suite and laid in the left lateral decubitus position. Prior to start of procedure, patient had acute oxygen desaturation. Findings are consistent for sleep apnea. An Olympus gastroscope was passed along the posterior oropharynx down to the distal esophagus where the squamocolumnar junction was encountered at 35 cm from the incisors. The stomach was entered and no bile reflux was found. Additional findings are listed below. Biopsies with cold forceps were obtained of the antrum. The first through third portion of the duodenum was examined. Retroflexion of the scope confirmed Hill grade 3 lower esophageal valve. The squamocolumnar junction demonstrated LA grade B erosive esophagitis. The stomach was desufflated. the patient tolerated the procedure well. FINDINGS: Squamocolumnar junction 35 cm from the incisors. Diaphragmatic hiatus at 38 cm. Hiatal hernia, 3 cm Hill grade 3 lower esophageal valve. LA grade B erosive esophagitis. Biopsies obtained Biopsies obtained of the duodenum. Chronic gastritis with biopsies obtained. RECOMMENDATIONS: Upper endoscopy as needed.
--- NOTE | 2024-12-14 09:31 | P.PCN ---
Date of Procedure: 12/14/24 Description of Procedure: PREOPERATIVE DIAGNOSIS: Personal history of colon polyps Colonoscopy screening POSTOPERATIVE DIAGNOSIS: Tubular adenoma descending colon Tubular adenoma rectum OPERATION: Colonoscopy to the ileocecal valve and appendiceal orifice, cecum Colonoscopy with cold forceps biopsy SURGEON: Eneida Ulloa MD. ANESTHESIA: MAC. INDICATIONS: The patient is an 54-year-old female who presents history of colon polyps. Last colonoscopy 5 years. Benefits and risks were described and informed consent was obtained. DESCRIPTION OF PROCEDURE: The patient had undergone Suprep. The patient had been brought into the operating room and laid in the left lateral decubitus position. After adequate intravenous sedation, the rectum was examined with 2% lidocaine jelly. No external hemorrhoids were encountered. The rectal tone was within normal limits. No lesions were palpated in the rectal vault. An Olympus colonoscope was advanced until the cecum, ileocecal valve and appendiceal orifice were clearly viewed. The prep was good. Sigmoid diverticulosis was encountered. Colonic polyps were found and removed. No evidence of focal colitis was found. Retroflexion of the scope demonstrated grade 2 internal hemorrhoids without active bleeding or inflammation. The colon was desufflated. The patient had tolerated the procedure well. Withdrawal time was over 6 minutes. FINDINGS: Aronchick preparation quality scale 2 (1-5) Internal hemorrhoids, grade 2 No external hemorrhoids No arteriovenous malformations. No large sigmoid diverticulosis Removal of 3 polyps: - Cold forceps biopsy at 30 cm from the anal verge, 4 mm adenoma, descending - Cold forceps biopsy at 10 cm from the anal verge x 2, 4 - 5 mm adenoma, rectum No focal colitis. RECOMMENDATIONS: Repeat colonoscopy 3 years, 2027 Plan - Discharge Summary Discharge Rx Participant: No New Discharge Prescriptions: New Omeprazole [PriLOSEC] 40 mg PO DAILY #14 cap Continue Ibuprofen [Motrin Ib] 600 mg PO Q8H PRN PRN Reason: Pain Fexofenadine/Pseudoephedrine [Aditi-D 24 Hour Tablet] 1 tab PO DAILY Multivitamins, Thera [Multivitamin (formulary)] 1 tab PO DAILY Contrave (Unk) 1 tab PO DAILY B12 Complex 1 tab PO DAILY Vit D (Unk) 1 tab PO DAILY Mv-Min/Vit C/Glut/Lysine/Hb124 [Airborne Effervescent Tablet] 1 tablet PO DAILY Discharge Medication List Fexofenadine/Pseudoephedrine [Aditi-D 24 Hour Tablet] 1 tab PO DAILY 12/16/21 [History] Ibuprofen [Motrin Ib] 600 mg PO Q8H PRN 12/16/21 [History] B12 Complex 1 tab PO DAILY 12/12/24 [History] Contrave (Unk) 1 tab PO DAILY 12/12/24 [History] Multivitamins, Thera [Multivitamin (formulary)] 1 tab PO DAILY 12/12/24 [History] Mv-Min/Vit C/Glut/Lysine/Hb124 [Airborne Effervescent Tablet] 1 tablet PO DAILY 12/12/24 [History] Vit D (Unk) 1 tab PO DAILY 12/12/24 [History] Omeprazole [PriLOSEC] 40 mg PO DAILY #14 cap 12/14/24 [Rx] [facility]Ref[place] [facility] [place] - 12/28/24 3:00 pm Patient Instructions/Handouts: Hiatal Hernia (DC), Colorectal Polyps (GEN), Sleep Apnea (GEN) Activity/Diet/Wound Care/Special Instructions: Repeat colonoscopy 3 years, 2027 Discharge Disposition: HOME SELF-CARE
[2024-12-14 09:40] VITALS: RESP 16
[2024-12-14 09:58] VITALS: BP 114/68; PULSE 72
== END 2024-12-14 10:30 | disposition home or self-care (01) ==
LOC: ORWHC2ENDO 07:59
PROVIDERS: ATTEND Surgery Plastic and Reconstructive Surgery
DX: Z12.11 Encounter for screening for malignant neoplasm of colon (principal); K29.50 Unspecified chronic gastritis without bleeding; D12.4 Benign neoplasm of descending colon; D12.8 Benign neoplasm of rectum; K25.3 Acute gastric ulcer without hemorrhage or perforation; K21.00 Gastro-esophageal reflux disease with esophagitis, without bleeding; K44.9 Diaphragmatic hernia without obstruction or gangrene; K64.1 Second degree hemorrhoids; E66.01 Morbid (severe) obesity due to excess calories; F17.210 Nicotine dependence, cigarettes, uncomplicated; G47.33 Obstructive sleep apnea (adult) (pediatric); Z90.89 Acquired absence of other organs; Z68.41 Body mass index [BMI] 40.0-44.9, adult; Z79.1 Long term (current) use of non-steroidal anti-inflammatories (NSAID); Z79.899 Other long term (current) drug therapy
CPT/HCPCS: 88305; 45380; 43239; J2003; J2704; J1596

== ENCOUNTER → 2024-12-28 | Outpatient (CLI) | payer BC ==
[2024-12-28 16:09] VITALS: BP 113/77; PULSE 80; RESP 16; TEMP 97.9; BMI 45.3
--- NOTE | 2024-12-28 16:38 | P.HPBAR ---
Bariatric H&P - History & Physicial H&P Date: 12/28/24 History & Physicial: Visit/CC: Initial Patient initial contact: Initial weight: 120.656 kg Initial weight in pounds: 266.00 Height: 5 ft 4.25 in Initial BMI: 45.3 Last weight: Current weight: 120.656 kg Current weight in pounds: 266.00 Current BMI: 45.3 Sarita body weight (based on NIH guidelines): 55.275 kg Excess body weight loss: 0.0% The patient is a 54 year-old F who presents for Bariatric Assessment. She has stress test in June 2024. She has a hiatal hernia. She is still smoking. She does not want surgery. Recommend nutritional panel. Correct nutrition. SHe is developing more hernias.Tobacco cessation advised. Repair hernia surgery 4 - 5 weeks. Past Medical History Past Medical History: No Reported History Additional Past Medical History / Comment(s): Varicose veins. History of Any Multi-Drug Resistant Organisms: None Reported Additional Past Surgical History / Comment(s): D&C. Past Anesthesia/Blood Transfusion Reactions: No Reported Reaction Smoking Status: Current every day smoker - Past Family History Mother Family Medical History: No Reported History Surgical - Exam Vital Signs Temp Pulse Resp BP 97.9 F 80 16 113/77 12/28/24 16:06 12/28/24 16:06 12/28/24 16:06 12/28/24 16:06 Bariatric Checklist Checklist: Plan: Checklist: EGD: 1. Hiatal hernia: 2. H. Pylori: HgbA1c: Vitamin D: Smoking: Primary care physician referral: Psychiatry clearance: Cardiology clearance: Sleep study: Diet journal: VTE risk score: VTE risk level: Rehab needs at discharge:
== END ==
LOC: BARWHC3 15:57
PROVIDERS: ATTEND Surgery Plastic and Reconstructive Surgery
DX: E66.01 Morbid (severe) obesity due to excess calories (principal); Z68.42 Body mass index [BMI] 45.0-49.9, adult
CPT/HCPCS: 99202